=== PATIENT | male | born 1965 | race Hispanic/Latino ===

== ENCOUNTER 2017-12-08 11:49 | Emergency (ER) | payer MEDICAID, OTHER ==
[2017-12-08 11:56] VITALS: BMI 29.8
[2017-12-08 11:59] VITALS: RESP 18; O2SAT 96
--- NOTE | 2017-12-08 12:40 | C.PDOC ---
History Of Present Illness 52 y/o male with history of DM presents to ED with c/o bilateral foot pain 8/10 Left greater than right. Patient states he recently finished antibiotics recently but when Podiatry consulted patient he denies taking any antibiotics. Patient states pain is worse when walking and is non radiating, denies fever, chills, numbness, new injury or any other complaints at this time. Chief Complaint (Nursing): Abnormal Skin Integrity History Per: Patient History/Exam Limitations: no limitations Onset/Duration Of Symptoms: Days Current Symptoms Are (Timing): Still Present Past Medical History Reviewed: Historical Data, Nursing Documentation, Vital Signs Vital Signs: Last Vital Signs Temp 97.9 F 12/08/17 11:55 Pulse 80 12/08/17 11:55 Resp 18 12/08/17 11:55 BP 154/90 H 12/08/17 11:55 Pulse Ox 96 12/08/17 15:25 - Medical History PMH: Diabetes, HTN Surgical History: No Surg Hx Family History: States: No Known Family Hx - Social History Hx Alcohol Use: Yes Hx Substance Use: No - Immunization History Hx Tetanus Toxoid Vaccination: Yes Hx Influenza Vaccination: Yes Hx Pneumococcal Vaccination: Yes Review Of Systems Constitutional: Negative for: Fever, Chills Gastrointestinal: Negative for: Nausea, Vomiting Musculoskeletal: Positive for: Foot Pain Skin: Negative for: Rash Neurological: Negative for: Numbness Physical Exam - Physical Exam Appears: Non-toxic, No Acute Distress, Other (Ill kept) Skin: Warm, Dry, No Rash Head: Atraumatic, Normacephalic Oral Mucosa: Moist Neck: Normal ROM, Supple Cardiovascular: Rhythm Regular Respiratory: Normal Breath Sounds, No Rales, No Rhonchi, No Wheezing Gastrointestinal/Abdominal: Soft, No Tenderness, No Guarding, No Rebound Extremity: Capillary Refill (<2 seconds), No Swelling, Other (left 2nd toe missing. No ulcer noted. Erythema to anterior surface of left foot. Feet unkept , malodorous) Neurological/Psych: Oriented x3, Normal Speech, Normal Cognition ED Course And Treatment - Laboratory Results Result Diagrams: 12/08/17 13:45 12/08/17 13:45 O2 Sat by Pulse Oximetry: 96 (RA) Pulse Ox Interpretation: Normal Medical Decision Making Medical Decision Making: Plan: Xray Progress: Podiatry Resident contacted and consulted patient at bedside Patient d/c with antibiotics and instructed to f.u with podiatry Disposition Counseled Patient/Family Regarding: Diagnosis, Need For Followup, Rx Given - Disposition Referrals: at [facility] [Outside] Disposition: HOME/ ROUTINE Disposition Time: 15:22 Condition: STABLE Additional Instructions: Follow up in Podiatry clinic. Prescriptions: Cephalexin [Keflex] 500 mg PO TID #40 capsule Ibuprofen [Motrin] 600 mg PO TID #15 tab Instructions: Foot Care for Diabetics Forms: [facility] (Eritrean), General Discharge Instructions - POA Present On Arrival: None - Clinical Impression Clinical Impression: Cellulitis, Skin ulcer - Scribe Statement The provider has reviewed the documentation as recorded by the Jaylanibrosalina Pike All medical record entries made by the Nicolasa were at my direction and personally dictated by me. I have reviewed the chart and agree that the record accurately reflects my personal performance of the history, physical exam, medical decision making, and the department course for this patient. I have also personally directed, reviewed, and agree with the discharge instructions and disposition.
[2017-12-08 13:53] LABS: BASO % 0.9 % (0.0-2.0); EOS # 0.1 K/uL (0.0-0.7); EOS % 2.8 % (0.0-4.0); LYMPH % 20.9 % (20.0-40.0); MEAN CORPUSCULAR HEMOGLOBIN 26.6 pg (27.0-31.0); MEAN CORPUSCULAR HGB CONC 34.6 g/dL (33.0-37.0); MEAN PLATELET VOLUME 8.7 fL (7.2-11.7); MONO # 0.4 K/uL (0.0-0.8); MONO % 7.7 % (0.0-10.0); NEUT # 3.2 K/uL (1.8-7.0); NEUT % 67.7 % (50.0-75.0); NRBC % 0.1 % (0.0-2.0); RBC 3.23 Mil/uL (4.40-5.90); RED CELL DISTRIBUTION WIDTH 14.9 % (11.5-14.5); WHITE BLOOD COUNT 4.7 K/uL (4.8-10.8)
[2017-12-08 13:56] LABS: HEMOGLOBIN 8.6 g/dL (12.0-18.0); MEAN CELL VOLUME 76.8 fL (80.0-94.0)
--- NOTE | 2017-12-08 14:13 | CP.PCM.CON ---
History of Present Illness - History of Present Illness History of Present Illness: Podiatry Consult note for Dr. Otero 52 year old male with PMHx including DM, HTN, HLD was seen at bedside regarding bilateral lower extremity pain. Patient states that he was treated for this last week in the hospital and was discharged with oral abx which he has not taken. During the exam, he is seen very sleep and falls asleep easily. Denies smoking and elicit drug use but admits to occasional EtOH. Admits that he is diabetic and has neuropathy. He currently denies any n/v/f/c/sob/cp/calf pain. Past Patient History - Past Social History Smoking Status: Never Smoked - CARDIAC Hx Hypertension: Yes - ENDOCRINE/METABOLIC Hx Endocrine Disorders: Yes Hx Diabetes Mellitus Type 2: Yes - PSYCHIATRIC Hx Substance Use: No - SURGICAL HISTORY Hx Surgeries: Yes Hx Amputation: Yes (left 2nd toe) - ANESTHESIA Hx Anesthesia: Yes Hx Anesthesia Reactions: No Meds Allergies/Adverse Reactions: Allergies Allergy/AdvReac Type Severity Reaction Status Date / Time No Known Allergies Allergy Verified 12/08/17 11:54 Physical Exam - Constitutional Appears: Non-toxic, No Acute Distress - Extremities Exam Additional comments: lower extremity focused exam: vasc: DP and PT pulses non-palpable due to +2 pitting edema. CFT < 3 seconds to all digits. +2 pitting edema noted to bilateral lower extremities. Skin temperature is warm to warm from proximal to distal b/l. derm:open lesion noted to the plantar aspect of the left foot measuring approximately 2 cm by 2 cm by 0.2 cm with a hyperkeratotic border, base is granular,erythema noted to dorsum of left foot, malodor noted to feet b/l due to poor hygiene neuro:gross sensation diminished b.l ortho:tenderness to palpation of feet b/l, no pain on compression of calf b/l, left 2nd digit amputation noted - Psychiatric Exam Psychiatric exam: Normal Affect, Normal Mood Results - Vital Signs Recent Vital Signs: Last Vital Signs Temp 97.9 F 12/08/17 11:55 Pulse 80 12/08/17 11:55 Resp 18 12/08/17 11:55 BP 154/90 H 12/08/17 11:55 Pulse Ox 96 12/08/17 12:44 - Labs Result Diagrams: 12/08/17 13:45 12/08/17 13:45 Labs: Laboratory Results - last 24 hr 12/08/17 12/08/17 12:01 13:45 WBC 4.7 L RBC 3.23 L Hgb 8.6 L D Hct 24.8 L MCV 76.8 L D MCH 26.6 L MCHC 34.6 RDW 14.9 H Plt Count 128 L D MPV 8.7 Neut % (Auto) 67.7 Lymph % (Auto) 20.9 [place] % (Auto) 7.7 Eos % (Auto) 2.8 Baso % (Auto) 0.9 Neut # (Auto) 3.2 Lymph # (Auto) 1.0 [place] # (Auto) 0.4 Eos # (Auto) 0.1 Baso # (Auto) 0.0 POC Glucose (mg/dL) 247 H Assessment & Plan - Assessment and Plan (Free Text) Assessment: 52 year old male with pain in legs b/l Plan: patient examined and evaluated discussed in detail with attending, Dr. Otero labs, chart vitals reviewed; afebrile, WBC 4.7 radiographic IMPRESSION: No acute fracture or evidence of periosteal reaction. Prior left 2nd digit transmetatarsal amputation. Erosive changes involving right 1st and 2nd metatarsophalangeal joints. Left worst than right dorsal forefoot soft tissue swelling. Abx per ED attending Patient to follow up in podiatry clinic
[2017-12-08 14:18] LABS: BLOOD UREA NITROGEN 38 mg/dL (9-20); CALCIUM 8.8 mg/dl (8.6-10.4); GFR AFRICAN-AMERICAN 40; GFR NON-AFRICAN AMERICAN 33
--- NOTE | 2017-12-08 14:42 | RAD ---
PROCEDURE: Bilateral Feet Radiographs. HISTORY: diabetic foot COMPARISON: CT scan of both feet dated 11/09/2015. FINDINGS: BONES: Right Foot: Fusion of the 5th digit and cuboid. No acute fracture or evidence of periosteal reaction Left Foot: Prior distal 2nd digit transmetatarsal amputation. Fusion of the 5th digit and cuboid. No acute fracture or evidence of periosteal reaction JOINTS: Right Foot: Erosive changes involving the 1st and 2nd metatarsophalangeal joints. Left Foot: Hallux valgus deformity. Degenerative changes. SOFT TISSUES: Right Foot: Dorsal forefoot soft tissue swelling. Left Foot: Dorsal forefoot soft tissue swelling. OTHER FINDINGS: None. IMPRESSION: No acute fracture or evidence of periosteal reaction. Prior left 2nd digit transmetatarsal amputation. Erosive changes involving right 1st and 2nd metatarsophalangeal joints. Left worst than right dorsal forefoot soft tissue swelling.
[2017-12-08 16:03] VITALS: BP 150/74; PULSE 75; TEMP 98
== END 2017-12-08 16:06 | disposition home or self-care (01) ==
LOC: C.ER 11:49
DX: L03.116 Cellulitis of left lower limb (principal); L97.829 Non-pressure chronic ulcer of other part of left lower leg with unspecified severity; I10 Essential (primary) hypertension; E11.9 Type 2 diabetes mellitus without complications; E78.5 Hyperlipidemia, unspecified; Z89.422 Acquired absence of other left toe(s)

== ENCOUNTER 2018-01-25 04:53 | Inpatient (IN) | payer MEDICAID, OTHER ==
[2018-01-25 04:53] VITALS: BMI 29.8
[2018-01-25 05:49] LABS: BASO # 0.1 K/uL (0.0-0.2); BASO % 0.8 % (0.0-2.0); EOS # 0.1 K/uL (0.0-0.7); HEMOGLOBIN 8.5 g/dL (12.0-18.0); LYMPH # 1.1 K/uL (1.0-4.3); LYMPH % 14.3 % (20.0-40.0); MEAN CELL VOLUME 75.9 fL (80.0-94.0); MEAN CORPUSCULAR HEMOGLOBIN 25.9 pg (27.0-31.0); MEAN CORPUSCULAR HGB CONC 34.1 g/dL (33.0-37.0); MEAN PLATELET VOLUME 8.2 fL (7.2-11.7); MONO # 0.7 K/uL (0.0-0.8); MONO % 9.8 % (0.0-10.0); NEUT # 5.4 K/uL (1.8-7.0); NEUT % 73.1 % (50.0-75.0); RBC 3.3 Mil/uL (4.40-5.90); RED CELL DISTRIBUTION WIDTH 13.7 % (11.5-14.5); WHITE BLOOD COUNT 7.3 K/uL (4.8-10.8)
--- NOTE | 2018-01-25 06:02 | C.PDOC ---
History Of Present Illness 52 year old male present to the ER with a complaint of left foot swelling. Patient states "I've got an infection, I need IV antibiotics", he notes he has had a wound to that foot for "years". Patient was evaluated at [facility] last month and reports taking antibiotics as instructed. He was recently admitted to a hospital in [facility] and was seen at a hospital in [facility]. Patient states he has not taken his diabetes medicine or antibiotics unless given to him in the hospital. Denies fever or trauma. Time Seen by Provider: 01/25/18 05:12 Chief Complaint (Nursing): Lower Extremity Problem/Injury History Per: Patient History/Exam Limitations: no limitations Onset/Duration Of Symptoms: Days Current Symptoms Are (Timing): Still Present Recent travel outside of the [place]: No Past Medical History Reviewed: Historical Data, Nursing Documentation, Vital Signs Vital Signs: Last Vital Signs Temp 98.3 F 01/25/18 05:02 Pulse 81 01/25/18 05:02 Resp 16 01/25/18 05:02 BP 158/86 H 01/25/18 05:02 Pulse Ox 100 01/25/18 06:13 - Medical History PMH: Diabetes, HTN Family History: States: Unknown Family Hx - Social History Hx Alcohol Use: Yes Hx Substance Use: No - Immunization History Hx Tetanus Toxoid Vaccination: Yes Hx Influenza Vaccination: Yes Hx Pneumococcal Vaccination: Yes Review Of Systems Constitutional: Negative for: Fever, Chills Cardiovascular: Negative for: Chest Pain, Palpitations Respiratory: Negative for: Cough, Shortness of Breath Musculoskeletal: Positive for: Other (Left foot swelling) Physical Exam - Physical Exam Appears: Non-toxic, Unkempt Skin: Warm, Dry Head: Atraumatic, Normacephalic Eye(s): bilateral: Normal Inspection, EOMI Nose: Normal Oral Mucosa: Moist Chest: Symmetrical, No Tenderness Cardiovascular: Rhythm Regular Respiratory: Normal Breath Sounds, No Rales, No Rhonchi, No Wheezing Extremity: Normal ROM (x4), Pedal Edema, Capillary Refill (<2 seconds), Other ( Left foot warm and erythematous, two 2x2cm open wounds to plantar aspect of left foot, no purulent drainage.) Pulses: Left Dorsalis Pedis: Normal, Right Dorsalis Pedis: Normal Neurological/Psych: Oriented x3, Normal Speech, Normal Motor, No Normal Sensation (soila decreased sensation) Gait: Steady ED Course And Treatment - Laboratory Results Result Diagrams: 01/25/18 05:46 01/25/18 05:46 O2 Sat by Pulse Oximetry: 100 (Room air) Pulse Ox Interpretation: Normal Progress Note: Case discussed with Dr Justin, agreed upon plan and treatment. Case endorsed to QUALITY SYSTEM MANAGER Alize Rojas pending podiatry. Disposition - Disposition Disposition Time: 06:56 Condition: STABLE Forms: [email or web address] [facility] (Turkmen) - Clinical Impression Clinical Impression: Chronic foot ulcer, Cellulitis - PA / QUALITY SYSTEM MANAGER / Resident Statement MD/DO has reviewed & agrees with the documentation as recorded. - Scribe Statement The provider has reviewed the documentation as recorded by the Scribe Jluis Roth All medical record entries made by the Jaylanibrosalina were at my direction and personally dictated by me. I have reviewed the chart and agree that the record accurately reflects my personal performance of the history, physical exam, medical decision making, and the department course for this patient. I have also personally directed, reviewed, and agree with the discharge instructions and disposition.
[2018-01-25 06:04] LABS: ALB/GLOB RATIO 1.1 (1.0-2.1); ALBUMIN 3.5 g/dL (3.5-5.0); CALCIUM 8.4 mg/dl (8.6-10.4)
[2018-01-25] MEDS ORDERED: ceFAZolin IV 1 gm in Dextrose 1 GM/50 ML BAG IVPB STA (06:35)
[2018-01-25] MEDS ORDERED: Sodium Chloride 0.9% 1,000 ML IV ONE (06:35)
[2018-01-25] MEDS ORDERED: ceFAZolin 1 gm in NS 1 GM/100 ML BAG IVPB ONE (06:46)
[2018-01-25] MEDS ORDERED: Sodium Chloride 0.9% 1,000 ML ONE (06:46)
--- NOTE | 2018-01-25 10:41 | CP.PCM.HP ---
<LizzetteprestonMelissa albertoTimi - Last Filed: 01/25/18 11:50> History of Present Illness - History of Present Illness History of Present Illness: CC: "My leg is swollen and painful." HPI: Patient is a 52 year old male with a past medical history of HTN, HLD, DM, and chronic leg edema/ulcers, who presents to the ED with complaints of a painful swollen left leg for the past two days. He says his legs have been swollen for "a couple of years" and he has been to "many hospitals in the past because of his legs". Yesterday, he took a tablet of doxycycline that he had from a previous infection. The patient reports recently being hospitalized in [facility] for the same complaints; however, he was told he has "dehydrated kidneys" and was given IV fluids. The patient currently complains of tender swollen left leg. He says that when hes on his feet all day, sometimes his sensation decreases. Patient denies chest pain, abdominal pain, dyspnea, nausea , vomiting, fevers, headaches, dysuria, constipation, and diarrhea. Patient is a poor historian and continues to fall asleep during examination. PMHx: HTN, HLD, DM, and chronic leg edema/ulcers SurgHx: Amputation of left 2nd toe 2017; multiple feet surgeries FamHx: patient does not know SocHx: denies tobacco and drug use; admits to etoh use "at social gatherings"; denies daily drinking Allergies: NKDA Medications: "antibiotics when I need them"; patient does not take any medications at this time ("for a couple of months"); formerly took Metformin 500mg PO BID Present on Admission - Present on Admission Any Indicators Present on Admission: Yes History of Uncontrolled Diabetes: Yes Review of Systems - Constitutional Constitutional: absent: Chills, Fever, Headache, Weakness - EENT Ears: absent: Dizziness - Cardiovascular Cardiovascular: Leg Edema. absent: Chest Pain, Dyspnea, Lightheadedness, Palpitations, Rapid Heart Rate - Respiratory Respiratory: absent: Cough, Dyspnea - Gastrointestinal Gastrointestinal: absent: Abdominal Pain, Constipation, Diarrhea, Nausea, Vomiting - Genitourinary Genitourinary: absent: Dysuria - Integumentary Integumentary: Skin Ulcer (chronic ulcers), Swelling (L>R LE) - Neurological Neurological: absent: Dizziness, Headaches Past Patient History - Infectious Disease Hx of Infectious Diseases: None - Past Social History Smoking Status: Never Smoked - CARDIAC Hx Hypertension: Yes - ENDOCRINE/METABOLIC Hx Endocrine Disorders: Yes Hx Diabetes Mellitus Type 2: Yes - PSYCHIATRIC Hx Substance Use: No - SURGICAL HISTORY Hx Surgeries: Yes Hx Amputation: Yes (left 2nd toe) - ANESTHESIA Hx Anesthesia: Yes Hx Anesthesia Reactions: No Meds Allergies/Adverse Reactions: Allergies Allergy/AdvReac Type Severity Reaction Status Date / Time No Known Allergies Allergy Verified 01/25/18 05:17 Physical Exam - Constitutional Appears: No Acute Distress - Head Exam Head Exam: ATRAUMATIC, NORMAL INSPECTION - Eye Exam Eye Exam: EOMI, Normal appearance - ENT Exam ENT Exam: Mucous Membranes Moist - Respiratory Exam Respiratory Exam: Decreased Breath Sounds, NORMAL BREATHING PATTERN. absent: Rales, Rhonchi, Wheezes, Respiratory Distress - Cardiovascular Exam Cardiovascular Exam: REGULAR RHYTHM, +S1, +S2. absent: Bradycardia, Tachycardia - GI/Abdominal Exam GI & Abdominal Exam: Normal Bowel Sounds, Soft. absent: Distended, Firm, Tenderness - Extremities Exam Extremities exam: Positive for: full ROM, pedal edema, tenderness (Left LE), pedal pulses present (R pedal pulse palpated. Left pulse not palpable due to dressings.). Negative for: normal inspection Additional comments: Left LE: pitting edema extending up to the knee; pain with palpation. Dressing applied from foot to mid calf-clean/dry/intact; amputated 2ng digit; sensation intact. - Neurological Exam Neurological exam: Alert, Oriented x3 - Psychiatric Exam Psychiatric exam: Normal Mood - Skin Skin Exam: Dry, Warm Results - Vital Signs Recent Vital Signs: Last Vital Signs Temp 98.5 F 01/25/18 08:23 Pulse 88 01/25/18 08:23 Resp 18 01/25/18 08:23 BP 146/78 01/25/18 08:23 Pulse Ox 100 01/25/18 08:23 - Labs Result Diagrams: 01/25/18 05:46 01/25/18 05:46 Labs: Laboratory Results - last 24 hr 01/25/18 01/25/18 01/25/18 05:16 05:46 05:46 WBC 7.3 D RBC 3.30 L Hgb 8.5 L Hct 25.0 L MCV 75.9 L MCH 25.9 L MCHC 34.1 RDW 13.7 Plt Count 171 MPV 8.2 Neut % (Auto) 73.1 Lymph % (Auto) 14.3 L [place] % (Auto) 9.8 Eos % (Auto) 2.0 Baso % (Auto) 0.8 Neut # (Auto) 5.4 Lymph # (Auto) 1.1 [place] # (Auto) 0.7 Eos # (Auto) 0.1 Baso # (Auto) 0.1 Sodium 135 Potassium 4.1 Chloride 101 Carbon Dioxide 24 Anion Gap 14 BUN 26 H Creatinine 2.5 H Est GFR ( Amer) 33 Est GFR (Non-Af Amer) 27 POC Glucose (mg/dL) 250 H Random Glucose 217 H Calcium 8.4 L Total Bilirubin 0.8 AST 18 ALT 30 Alkaline Phosphatase 59 Total Protein 6.7 Albumin 3.5 Globulin 3.2 Albumin/Globulin Ratio 1.1 Assessment & Plan (1) Left leg swelling Assessment and Plan: Afebrile, no leukocytosis Left foot xray: f/u Dopplers of LLE: f/u In the ED, Cefazolin was given Gave 1 dose of Vanco 1gm IV Started Zosyn 2.25g IV Q8h Continue to monitor Status: Acute (2) Renal dysfunction Assessment and Plan: Recently in a [place] hospital for cellulitis and renal dysfunciton- was given IVF BUN/Cr: 26/2.5 [of note-previous ER visit in November 2017, BUN/Cr was 38/2.1] Continue IV Fluids- 1/2NS@100mls/hr Continue to monitor Status: Acute (3) Diabetes mellitus Assessment and Plan: Accuchecks ISS Hypoglycemic protocol Diabetic diet Status: Acute (4) Prophylactic measure Assessment and Plan: DVT: no SCDs due to swelling; Heparin 5000u SC Q8 GI: not indicated Diabetic diet Status: Acute <Damian Chakraborty H - Last Filed: 01/25/18 16:51> Results - Vital Signs Recent Vital Signs: Last Vital Signs Temp 98 F 01/25/18 16:29 Pulse 76 01/25/18 16:29 Resp 20 01/25/18 16:29 BP 130/71 01/25/18 16:29 Pulse Ox 100 01/25/18 16:29 - Labs Result Diagrams: 01/25/18 05:46 01/25/18 05:46 Labs: Laboratory Results - last 24 hr 01/25/18 01/25/18 01/25/18 05:16 05:46 05:46 WBC 7.3 D RBC 3.30 L Hgb 8.5 L Hct 25.0 L MCV 75.9 L MCH 25.9 L MCHC 34.1 RDW 13.7 Plt Count 171 MPV 8.2 Neut % (Auto) 73.1 Lymph % (Auto) 14.3 L [place] % (Auto) 9.8 Eos % (Auto) 2.0 Baso % (Auto) 0.8 Neut # (Auto) 5.4 Lymph # (Auto) 1.1 [place] # (Auto) 0.7 Eos # (Auto) 0.1 Baso # (Auto) 0.1 Sodium 135 Potassium 4.1 Chloride 101 Carbon Dioxide 24 Anion Gap 14 BUN 26 H Creatinine 2.5 H Est GFR ( Amer) 33 Est GFR (Non-Af Amer) 27 POC Glucose (mg/dL) 250 H Random Glucose 217 H Calcium 8.4 L Total Bilirubin 0.8 AST 18 ALT 30 Alkaline Phosphatase 59 Total Protein 6.7 Albumin 3.5 Globulin 3.2 Albumin/Globulin Ratio 1.1 01/25/18 01/25/18 12:05 16:11 WBC RBC Hgb Hct MCV MCH MCHC RDW Plt Count MPV Neut % (Auto) Lymph % (Auto) [place] % (Auto) Eos % (Auto) Baso % (Auto) Neut # (Auto) Lymph # (Auto) [place] # (Auto) Eos # (Auto) Baso # (Auto) Sodium Potassium Chloride Carbon Dioxide Anion Gap BUN Creatinine Est GFR ( Amer) Est GFR (Non-Af Amer) POC Glucose (mg/dL) 228 H 92 Random Glucose Calcium Total Bilirubin AST ALT Alkaline Phosphatase Total Protein Albumin Globulin Albumin/Globulin Ratio Attending/Attestation - Attestation I have personally seen and examined this patient.: Yes I have fully participated in the care of the patient.: Yes I have reviewed all pertinent clinical information: Yes Notes (Text): 01/25/18 16:50 Medical attending: Patient was seen and examined by me, agrees the above note by the medical pathologist. This is a homeless patient, who for some time now has had a nonhealing left foot ulcer for some time now. Will need to get imaging of the left foot just to make sure he does not have osteomyelitis. Also the emergency room was concerned of the elevated creatinine. He had lab work 1 month ago and at that time the creatinine was slightly lower. It is possible that he is dehydrated so will give him a gentle intravenous fluids just to see what happens to his renal function. It may be that this is chronic but we'll see. I explained to the patient that he might be discharged tomorrow. In the meantime we'll give Zosyn, as well as a one-time dose of vancomycin Thank you very much, Damian Chakraborty
[2018-01-25] MEDS ORDERED: Vancomycin 1 gm/NS 200 ml 1 GM/200 ML BAG IVPB ONE (11:00)
[2018-01-25] MEDS: Sodium Chloride 0.45% 1,000 ML IV SCH ×4 (11:38→21:11)
[2018-01-25] MEDS: (Novolin R) Insulin Human Regular 100 units/ml vial SC SCH ×3 (12:22→21:12)
[2018-01-25] MEDS: Piperacillin/Tazobact 2.25 GM in Sodium Chloride 100 ML IVPB SCH ×2 (13:55→21:09)
--- NOTE | 2018-01-25 16:12 | CP.PCM.CON ---
History of Present Illness - History of Present Illness History of Present Illness: Podiatry consultation note for Dr. Otero 52 year old male patient with a past medical history of HTN, HLD, DM, and chronic leg edema/ulcer was seen at bedside ED this morning after request for podiatry consultation. Patient presents with open ulceration to left leg, states those are chronic. Patient also states that he had edema to left leg for a long time as well; "more than months". He does not remember any trauma to the left foot. Patient denies of pain to left foot site of ulceration on palpation. Patient denies of any N/V/F?C or SOB Past Patient History - Infectious Disease Hx of Infectious Diseases: None - Past Medical History & Family History Past Medical History?: Yes - Past Social History Smoking Status: Never Smoked - CARDIAC Hx Hypertension: Yes - ENDOCRINE/METABOLIC Hx Endocrine Disorders: Yes Hx Diabetes Mellitus Type 2: Yes - MUSCULOSKELETAL/RHEUMATOLOGICAL Hx Falls: No - PSYCHIATRIC Hx Substance Use: No - SURGICAL HISTORY Hx Surgeries: Yes Hx Amputation: Yes (left 2nd toe) - ANESTHESIA Hx Anesthesia: Yes Hx Anesthesia Reactions: No Meds Allergies/Adverse Reactions: Allergies Allergy/AdvReac Type Severity Reaction Status Date / Time No Known Allergies Allergy Verified 01/25/18 05:17 - Medications Medications: Current Medications Heparin Sodium (Porcine) (Heparin) 5,000 units SC Q8 [facility] Last Admin: 01/25/18 13:56 Dose: 5,000 units Piperacillin Sod/Tazobactam (Sod 2.25 gm/ Sodium Chloride) 100 mls @ 200 mls/ hr IVPB Q8H NATALIO PRN Reason: Protocol Last Admin: 01/25/18 13:55 Dose: 200 mls/hr Sodium Chloride (Sodium Chloride 0.45%) 1,000 mls @ 100 mls/hr IV .Q10H NATALIO Last Admin: 01/25/18 12:18 Dose: 100 mls/hr Insulin Human Regular (Novolin R) 0 unit SC ACHS NATALIO PRN Reason: Protocol Last Admin: 01/25/18 12:22 Dose: 3 unit Pneumococcal Polyvalent Vaccine (Pneumovax 23 Vaccine) 0.5 ml IM .ONCE ONE Stop: 01/27/18 10:01 Physical Exam - Constitutional Appears: Well, Non-toxic, No Acute Distress - Extremities Exam Additional comments: Left lower extremity exam DERM: Open ulceration noted to plantar lateral aspect of left foot hallux IPJ measuring 2cm x 2cm x 0.1cm. Mild serous drainage noted. No probe to bone. No pus noted. Preiwound erythema noted <1cmm margin. Open wound noted to plantar aspect of Left foot 4th metatarsal head measuring 1cm x 1cm x 0.4cm with mix of fibrotic and granular base. No drainage noted. No pus noted. No erythema noted. No probe to bone. Hyperkeratotic lesion noted to plantar aspect of left foot 1st mtpj measuring 1.5cm x x1.5cm. No drinage noted. No sign of acute infection noted. VASC: Non-palpable DP and PT noted bilaterally. YOUNG ADULT LIBRARIAN less than 3 seconds noted to all digits (-left 2nd digit secondary to amputation) NEURO: Gross sensation diminished ORTHO: left 2nd digit amputated from previous surgery. No pain on palpation to left foot - Neurological Exam Neurological exam: Alert, Oriented x3 - Psychiatric Exam Psychiatric exam: Normal Affect, Normal Mood Results - Vital Signs Recent Vital Signs: Last Vital Signs Temp 98.5 F 01/25/18 08:23 Pulse 88 01/25/18 08:23 Resp 18 01/25/18 08:23 BP 146/78 01/25/18 08:23 Pulse Ox 100 01/25/18 08:23 - Labs Result Diagrams: 01/25/18 05:46 01/25/18 05:46 Labs: Laboratory Results - last 24 hr 01/25/18 01/25/18 01/25/18 05:16 05:46 05:46 WBC 7.3 D RBC 3.30 L Hgb 8.5 L Hct 25.0 L MCV 75.9 L MCH 25.9 L MCHC 34.1 RDW 13.7 Plt Count 171 MPV 8.2 Neut % (Auto) 73.1 Lymph % (Auto) 14.3 L Teller % (Auto) 9.8 Eos % (Auto) 2.0 Baso % (Auto) 0.8 Neut # (Auto) 5.4 Lymph # (Auto) 1.1 Teller # (Auto) 0.7 Eos # (Auto) 0.1 Baso # (Auto) 0.1 Sodium 135 Potassium 4.1 Chloride 101 Carbon Dioxide 24 Anion Gap 14 BUN 26 H Creatinine 2.5 H Est GFR ( Amer) 33 Est GFR (Non-Af Amer) 27 POC Glucose (mg/dL) 250 H Random Glucose 217 H Calcium 8.4 L Total Bilirubin 0.8 AST 18 ALT 30 Alkaline Phosphatase 59 Total Protein 6.7 Albumin 3.5 Globulin 3.2 Albumin/Globulin Ratio 1.1 01/25/18 12:05 WBC RBC Hgb Hct MCV MCH MCHC RDW Plt Count MPV Neut % (Auto) Lymph % (Auto) Teller % (Auto) Eos % (Auto) Baso % (Auto) Neut # (Auto) Lymph # (Auto) Teller # (Auto) Eos # (Auto) Baso # (Auto) Sodium Potassium Chloride Carbon Dioxide Anion Gap BUN Creatinine Est GFR ( Amer) Est GFR (Non-Af Amer) POC Glucose (mg/dL) 228 H Random Glucose Calcium Total Bilirubin AST ALT Alkaline Phosphatase Total Protein Albumin Globulin Albumin/Globulin Ratio Assessment & Plan - Assessment and Plan (Free Text) Assessment: 52 yo male patient presents with chromic open ulceration to left plantar foot Plan: Patient was seen, evaluated and treated with all questions and concerns addressed labs and vitals reviewed; afebrile, WBC 7.3 discussed in detail with Dr. Otero Left foot dressed with Betadine soaked DSD, Kerlix, SPENCER Keep left leg elevated with pillows Await for Xray left foot Awaiting arterial study Podiatry will continue to follow in-house
[2018-01-25 16:30] VITALS: RESP 20
[2018-01-26] MEDS: Sodium Chloride 0.45% 1,000 ML IV SCH ×2 (03:28→07:45)
[2018-01-26] MEDS: Piperacillin/Tazobact 2.25 GM in Sodium Chloride 100 ML IVPB SCH ×2 (04:30→13:03)
[2018-01-26] MEDS: (Novolin R) Insulin Human Regular 100 units/ml vial SC SCH ×2 (07:44→12:37)
--- NOTE | 2018-01-26 08:39 | RAD ---
PROCEDURE: Right Foot Radiographs. HISTORY: r/o osteo COMPARISON: None. FINDINGS: BONES: No acute fracture. Healed fracture of base of 5th metatarsal. Status post amputation of 2nd digit at the level of the head of the 2nd metatarsal. JOINTS: Normal. SOFT TISSUES: There is cutaneous ulcer seen along the plantar aspect of the 5th digit at the level of the 5th proximal phalanx. OTHER FINDINGS: None. IMPRESSION: Amputation 2nd digit. Healed fracture base of 5th metatarsal. Cutaneous ulcer plantar aspect 5th proximal phalanx. No other significant abnormality identified. No plain radiographic evidence of osteomyelitis.
--- NOTE | 2018-01-26 10:24 | CP.PCM.PN ---
Subjective - Date & Time of Evaluation Date of Evaluation: 01/26/18 Time of Evaluation: 10:17 - Subjective Subjective: Podiatry consultation note for Dr. Otero 52 year old male patient was seen at bedside for chronic leg/ulcer after being admitted from the ED yesterday. Patient presents with open ulceration and edema to left leg, both being chronic problems. Patient denies any acute pain. Patient denies overnight acute events. Patient denies of any N/V/F?C or SOB Objective - Vital Signs/Intake and Output Vital Signs (last 24 hours): Temp Pulse Resp BP Pulse Ox 98.5 F 73 20 151/82 H 96 01/25/18 23:31 01/25/18 23:31 01/25/18 23:31 01/25/18 23:31 01/25/18 23:31 Intake and Output: 01/26/18 01/26/18 06:59 18:59 Intake Total 1100 Balance 1100 - Medications Medications: Current Medications Heparin Sodium (Porcine) (Heparin) 5,000 units SC Q8 [facility] Last Admin: 01/26/18 05:30 Dose: 5,000 units Piperacillin Sod/Tazobactam (Sod 2.25 gm/ Sodium Chloride) 100 mls @ 200 mls/ hr IVPB Q8H NATALIO PRN Reason: Protocol Last Admin: 01/26/18 04:30 Dose: 200 mls/hr Sodium Chloride (Sodium Chloride 0.45%) 1,000 mls @ 100 mls/hr IV .Q10H [facility] Last Admin: 01/26/18 07:45 Dose: Not Given Insulin Human Regular (Novolin R) 0 unit SC ACHS NATALIO PRN Reason: Protocol Last Admin: 01/26/18 07:44 Dose: Not Given Pneumococcal Polyvalent Vaccine (Pneumovax 23 Vaccine) 0.5 ml IM .ONCE ONE Stop: 01/27/18 10:01 - Labs Labs: 01/25/18 05:46 01/25/18 05:46 - Constitutional Appears: Well, Non-toxic, No Acute Distress - Head Exam Head Exam: ATRAUMATIC, NORMOCEPHALIC - Extremities Exam Additional comments: Left lower extremity exam DERM: Open ulceration noted to plantar lateral aspect of left foot hallux IPJ measuring 2cm x 2cm x 0.1cm. Fibrogranular base, Mild serous drainage noted. No probe to bone. No pus noted. Hyperkeratotic skin jenna wound, Preiwound erythema noted <1cmm margin, no malodor Open wound noted to plantar aspect of Left foot 4th metatarsal head measuring 1cm x 1cm x 0.4cm with mix of fibrotic and granular base. No drainage noted. No pus noted. Hyperkeratotic skin noted jenna wound, No erythema noted. No probe to bone, no malodor. Hyperkeratotic lesion noted to plantar aspect of left foot 1st mtpj measuring 1.5cm x x1.5cm. No drainage noted. No sign of acute infection noted. VASC: Non-palpable DP and PT noted bilaterally. COPYMAN less than 3 seconds noted to all digits (-left 2nd digit secondary to amputation) NEURO: Gross sensation diminished ORTHO: left 2nd digit amputated from previous surgery. No pain on palpation to left foot - Neurological Exam Neurological Exam: Alert, Awake, Oriented x3 - Psychiatric Exam Psychiatric exam: Normal Affect - Skin Skin Exam: Normal Color Assessment and Plan - Assessment and Plan (Free Text) Assessment: 52 yo male patient presents with chronic open ulcerations to left plantar foot Plan: Patient was seen, and evaluated with all questions and concerns addressed Plan discussed in detail with the attending, Dr. Otero labs and vitals reviewed; afebrile, WBC 7.3 Hyperkeratotic skin jenna wound debrided using a sterile #10 blade until healthy tissue was noted Patient tolerated without any concerns. Left foot dressed with Betadine soaked DSD, Kerlix, SPENCER Advised to keep left leg elevated to reduce swelling. X-ray left foot: no osseous deformities; no signs of OM. Awaiting arterial study Podiatry will continue to follow in-house
[2018-01-26 10:39] LABS: BASO # 0.1 K/uL (0.0-0.2); BASO % 1.3 % (0.0-2.0); EOS # 0.3 K/uL (0.0-0.7); EOS % 4.7 % (0.0-4.0); HEMOGLOBIN 9.3 g/dL (12.0-18.0); LYMPH # 1.3 K/uL (1.0-4.3); LYMPH % 23.4 % (20.0-40.0); MEAN CORPUSCULAR HGB CONC 34.6 g/dL (33.0-37.0); MEAN PLATELET VOLUME 8.3 fL (7.2-11.7); MONO # 0.4 K/uL (0.0-0.8); MONO % 6.8 % (0.0-10.0); NEUT # 3.5 K/uL (1.8-7.0); NEUT % 63.8 % (50.0-75.0); RBC 3.57 Mil/uL (4.40-5.90); RED CELL DISTRIBUTION WIDTH 13.6 % (11.5-14.5); WHITE BLOOD COUNT 5.5 K/uL (4.8-10.8)
[2018-01-26 10:56] LABS: ALB/GLOB RATIO 0.9 (1.0-2.1); CALCIUM 8.7 mg/dl (8.6-10.4)
--- NOTE | 2018-01-26 11:36 | CP.PCM.DIS ---
<Melissa Toledo - Last Filed: 01/26/18 12:22> Provider - Provider Date of Admission: 01/25/18 08:04 Attending physician: Damian Chakraborty DO Time Spent in preparation of Discharge (in minutes): 45 Diagnosis - Discharge Diagnosis (1) Left leg swelling Status: Acute (2) Renal dysfunction Status: Acute (3) Diabetes mellitus Status: Acute (4) Prophylactic measure Status: Acute Hospital Course - Lab Results Lab Results: Most Recent Lab Values WBC 5.5 K/uL (4.8-10.8) 01/26/18 10:28 RBC 3.57 Mil/uL (4.40-5.90) L 01/26/18 10:28 Hgb 9.3 g/dL (12.0-18.0) L 01/26/18 10:28 Hct 26.8 % (35.0-51.0) L 01/26/18 10:28 MCV 75.0 fL (80.0-94.0) L 01/26/18 10:28 MCH 26.0 pg (27.0-31.0) L 01/26/18 10:28 MCHC 34.6 g/dL (33.0-37.0) 01/26/18 10:28 RDW 13.6 % (11.5-14.5) 01/26/18 10:28 Plt Count 204 K/uL (130-400) 01/26/18 10:28 MPV 8.3 fL (7.2-11.7) 01/26/18 10:28 Neut % (Auto) 63.8 % (50.0-75.0) 01/26/18 10:28 Lymph % (Auto) 23.4 % (20.0-40.0) 01/26/18 10:28 [place] % (Auto) 6.8 % (0.0-10.0) 01/26/18 10:28 Eos % (Auto) 4.7 % (0.0-4.0) H 01/26/18 10:28 Baso % (Auto) 1.3 % (0.0-2.0) 01/26/18 10:28 Neut # (Auto) 3.5 K/uL (1.8-7.0) 01/26/18 10:28 Lymph # (Auto) 1.3 K/uL (1.0-4.3) 01/26/18 10:28 [place] # (Auto) 0.4 K/uL (0.0-0.8) 01/26/18 10:28 Eos # (Auto) 0.3 K/uL (0.0-0.7) 01/26/18 10:28 Baso # (Auto) 0.1 K/uL (0.0-0.2) 01/26/18 10:28 Sodium 141 mmol/L (132-148) 01/26/18 10:28 Potassium 4.2 mmol/L (3.6-5.2) 01/26/18 10:28 Chloride 107 mmol/L (98-107) 01/26/18 10:28 Carbon Dioxide 25 mmol/L (22-30) 01/26/18 10:28 Anion Gap 14 (10-20) 01/26/18 10:28 BUN 19 mg/dL (9-20) 01/26/18 10:28 Creatinine 2.4 mg/dL (0.8-1.5) H 01/26/18 10:28 Est GFR ( Amer) 35 01/26/18 10:28 Est GFR (Non-Af Amer) 29 01/26/18 10:28 POC Glucose (mg/dL) 105 mg/dL (65-110) 01/26/18 07:29 Random Glucose 117 mg/dL (75-110) H 01/26/18 10:28 Calcium 8.7 mg/dl (8.6-10.4) 01/26/18 10:28 Total Bilirubin 0.7 mg/dL (0.2-1.3) 01/26/18 10:28 AST 16 U/L (17-59) L 01/26/18 10:28 ALT 22 U/L (21-72) 01/26/18 10:28 Alkaline Phosphatase 49 U/L (38-126) 01/26/18 10:28 Total Protein 6.3 g/dL (6.3-8.3) 01/26/18 10:28 Albumin 3.0 g/dL (3.5-5.0) L 01/26/18 10:28 Globulin 3.3 gm/dL (2.2-3.9) 01/26/18 10:28 Albumin/Globulin Ratio 0.9 (1.0-2.1) L 01/26/18 10:28 - Hospital Course Hospital Course: CC: "My leg is swollen and painful." HPI: Patient is a 52 year old male with a past medical history of HTN, HLD, DM, and chronic leg edema/ulcers, who presents to the ED with complaints of a painful swollen left leg for the past two days. He says his legs have been swollen for "a couple of years" and he has been to "many hospitals in the past because of his legs". Yesterday, he took a tablet of doxycycline that he had from a previous infection. The patient reports recently being hospitalized in [facility] for the same complaints; however, he was told he has "dehydrated kidneys" and was given IV fluids. The patient currently complains of tender swollen left leg. He says that when hes on his feet all day, sometimes his sensation decreases. Patient denies chest pain, abdominal pain, dyspnea, nausea , vomiting, fevers, headaches, dysuria, constipation, and diarrhea. Patient is a poor historian and continues to fall asleep during examination. PMHx: HTN, HLD, DM, and chronic leg edema/ulcers SurgHx: Amputation of left 2nd toe 2017; multiple feet surgeries FamHx: patient does not know SocHx: denies tobacco and drug use; admits to etoh use "at social gatherings"; denies daily drinking Allergies: NKDA Medications: "antibiotics when I need them"; patient does not take any medications at this time ("for a couple of months"); formerly took Metformin 500mg PO BID Hospital course: Patient was admitted on 01/25/18 for leg edema and elizabeth. In the ED, labs were drawn and patient was found to have an elevated creatinine. Patient was given IV fluids and cefazolin while in the ED. Patient was transferred to medical floors. Foot xray was ordered to rule out osteomyelitis and showed no evidence of osteomyelitis, amputated 2nd digit, and a healed fracture at base of 5th metatarsal; cutaneous ulcer plantar aspect of 5th phalanx. Dopplers were ordered and was negative for DVT. IV fluids were continued and creatinine decreased. Patient's wounds were cleaned and wrapped in krelix and alex wrap. Patient is stable for discharge. Patient instructed to take medication as prescribed and to follow up with PMD and podiatry. This is a brief summary of the hospital course. Please see EMR for more details. Discharge Exam - Additional Findings Additional findings: - Constitutional Appears: No Acute Distress - Head Exam Head Exam: ATRAUMATIC, NORMAL INSPECTION - Eye Exam Eye Exam: EOMI, Normal appearance - ENT Exam ENT Exam: Mucous Membranes Moist - Respiratory Exam Respiratory Exam: Decreased Breath Sounds, NORMAL BREATHING PATTERN. absent: Rales, Rhonchi, Wheezes, Respiratory Distress - Cardiovascular Exam Cardiovascular Exam: REGULAR RHYTHM, +S1, +S2. absent: Bradycardia, Tachycardia - GI/Abdominal Exam GI & Abdominal Exam: Normal Bowel Sounds, Soft. absent: Distended, Firm, Tenderness - Extremities Exam Extremities exam: Positive for: full ROM, pedal edema, tenderness (Left LE), pedal pulses present (R pedal pulse palpated. Left pulse not palpable due to dressings.). Negative for: normal inspection Additional comments: Left LE: pitting edema extending up to the knee; pain with palpation. Dressing applied from foot to mid calf-clean/dry/intact; amputated 2ng digit; sensation intact. - Neurological Exam Neurological exam: Alert, Oriented x3 - Psychiatric Exam Psychiatric exam: Normal Mood - Skin Skin Exam: Dry, Warm Discharge Plan - Discharge Medications Prescriptions: Cephalexin [Keflex] 500 mg PO TID 5 Days #15 capsule - Follow Up Plan Condition: STABLE Disposition: HOME/ ROUTINE Instructions: Diabetes Exchange Diet, Cellulitis (DC) Additional Instructions: Patient is stable for discharge to home. Patient must continue the following medication: Keflex 500mg PO TID for 5 days. Patient should avoid nsaids. Patient should follow up with PMD and with podiatry within 1-2 weeks of discharge. Patient should keep affected lower extremity elevated, clean, and dry. <Damian Chakraborty - Last Filed: 01/26/18 14:13> Provider - Provider Date of Admission: 01/25/18 08:04 Attending physician: Damian Chakraborty DO Hospital Course - Lab Results Lab Results: Most Recent Lab Values WBC 5.5 K/uL (4.8-10.8) 01/26/18 10:28 RBC 3.57 Mil/uL (4.40-5.90) L 01/26/18 10:28 Hgb 9.3 g/dL (12.0-18.0) L 01/26/18 10: Hct 26.8 % (35.0-51.0) L 01/26/18 10: MCV 75.0 fL (80.0-94.0) L 01/26/18 10: MCH 26.0 pg (27.0-31.0) L 01/26/18 10: MCHC 34.6 g/dL (33.0-37.0) 01/26/18 10:28 RDW 13.6 % (11.5-14.5) 01/26/18 10:28 Plt Count 204 K/uL (130-400) 01/26/18 10: MPV 8.3 fL (7.2-11.7) 01/26/18 10: Neut % (Auto) 63.8 % (50.0-75.0) 01/26/18 10: Lymph % (Auto) 23.4 % (20.0-40.0) 01/26/18 10: [place] % (Auto) 6.8 % (0.0-10.0) 01/26/18 10:28 Eos % (Auto) 4.7 % (0.0-4.0) H 01/26/18 10: Baso % (Auto) 1.3 % (0.0-2.0) 01/26/18 10: Neut # (Auto) 3.5 K/uL (1.8-7.0) 01/26/18 10: Lymph # (Auto) 1.3 K/uL (1.0-4.3) 01/26/18 10: [place] # (Auto) 0.4 K/uL (0.0-0.8) 01/26/18 10: Eos # (Auto) 0.3 K/uL (0.0-0.7) 01/26/18 10: Baso # (Auto) 0.1 K/uL (0.0-0.2) 01/26/18 10:28 Sodium 141 mmol/L (132-148) 01/26/18 10:28 Potassium 4.2 mmol/L (3.6-5.2) 01/26/18 10:28 Chloride 107 mmol/L (98-107) 01/26/18 10:28 Carbon Dioxide 25 mmol/L (22-30) 01/26/18 10:28 Anion Gap 14 (10-20) 01/26/18 10:28 BUN 19 mg/dL (9-20) 01/26/18 10:28 Creatinine 2.4 mg/dL (0.8-1.5) H 01/26/18 10:28 Est GFR ( Amer) 35 01/26/18 10:28 Est GFR (Non-Af Amer) 29 01/26/18 10:28 POC Glucose (mg/dL) 105 mg/dL (65-110) 01/26/18 07:29 Random Glucose 117 mg/dL (75-110) H 01/26/18 10:28 Calcium 8.7 mg/dl (8.6-10.4) 01/26/18 10:28 Total Bilirubin 0.7 mg/dL (0.2-1.3) 01/26/18 10:28 AST 16 U/L (17-59) L 01/26/18 10:28 ALT 22 U/L (21-72) 01/26/18 10:28 Alkaline Phosphatase 49 U/L (38-126) 01/26/18 10:28 Total Protein 6.3 g/dL (6.3-8.3) 01/26/18 10:28 Albumin 3.0 g/dL (3.5-5.0) L 01/26/18 10:28 Globulin 3.3 gm/dL (2.2-3.9) 01/26/18 10:28 Albumin/Globulin Ratio 0.9 (1.0-2.1) L 01/26/18 10:28 Attending/Attestation - Attestation I have personally seen and examined this patient.: Yes I have fully participated in the care of the patient.: Yes I have reviewed all pertinent clinical information, including history, physical exam and plan: Yes Notes (Text): 01/26/18 14:13 Medical attending: Patient was seen and examined by me, agrees the above note by the medical apparatus model maker. The patient underwent an x-ray of the left lower extremity. This x-ray was negative for osteomyelitis. The patient had several runs of IV antibiotics, he'll need to continue with the oral antibiotics as well We also gave the patient a been of supplies that included 4 x 4's, Kerlix wraps , as also Alex wraps. We explained to the patient that he needs to follow-up at [facility] for further care. Review the lab work showed that he did not have any substantial change to his creatinine, this appears to be the baseline. Thank you very much, Damian Chakraborty
[2018-01-26] MEDS ORDERED: Pneumococcal 23-Valent Vaccine IM ONE (12:15)
--- NOTE | 2018-01-26 14:49 | VASCLAB ---
PROCEDURE: Left Lower Extremity Venous Duplex Exam. HISTORY: Swelling, r/o dvt PRIORS: None. TECHNIQUE: Left common femoral, femoral, popliteal and posterior tibial, peroneal and great saphenous veins were evaluated. Flow was assessed with color Doppler, compressibility, assessment of phasic flow and augmentation response. Report prepared by JESENIA Malagon FINDINGS: LEFT: 1. Common Femoral Vein: 1.1. Compressibility - Fully compressible: Thrombus - None : Flow - Phasic: Augmentation -Normal: Reflux - None. 2. Femoral Vein: 2.1. Compressibility - Fully compressible: Thrombus - None: Flow - Phasic: Augmentation -Normal: Reflux - None. 3. Popliteal Vein: 3.1. Compressibility - Fully compressible: Thrombus - None: Flow - Phasic: Augmentation -Normal: Reflux - None. 4. Posterior Tibial Vein: 4.1. Compressibility - Fully compressible: Thrombus - None: Flow - Phasic: Augmentation -Normal: Reflux - None. 5. Peroneal Vein: 5.1. Compressibility - Fully compressible: Thrombus - None: Flow - Phasic: Augmentation -Normal: Reflux - None. 6. Great Saphenous Vein: 6.1. Compressibility - Fully compressible: Thrombus - None: Flow - Phasic: Augmentation - Normal: Reflux - None. OTHER FINDINGS: Wall thickening noted of the left popliteal vein. IMPRESSION: No evidence of deep or superficial vein thrombosis of the left lower extremity with excellent venous flow. Normal valve function noted of the left side. Normal venous flow noted in the right common femoral vein.
[2018-01-26 17:06] VITALS: BP 128/75; PULSE 64; TEMP 98.1; O2SAT 100
[2018-01-27] MEDS ORDERED: Collagenase 250 Units/gm Ointment(30 gm) TOP SCH (10:00)
== END 2018-01-26 18:15 | disposition home or self-care (01) | DRG 294 ==
LOC: C.ER 04:53 → C.3T 08:04 → UNDODISIN 01-26 16:30
PROVIDERS: ADMIT Hospitalist; ATTEND Hospitalist
DX: E11.621 Type 2 diabetes mellitus with foot ulcer (principal); E86.0 Dehydration; L97.929 Non-pressure chronic ulcer of unspecified part of left lower leg with unspecified severity; L03.116 Cellulitis of left lower limb; E78.5 Hyperlipidemia, unspecified; I10 Essential (primary) hypertension; N28.9 Disorder of kidney and ureter, unspecified; Z89.422 Acquired absence of other left toe(s)

== ENCOUNTER 2018-04-26 07:40 | Emergency (ER) | payer SELFPAY ==
[2018-04-26 07:41] VITALS: BMI 29.8
[2018-04-26 08:11] VITALS: RESP 20; TEMP 98.6
--- NOTE | 2018-04-26 08:23 | C.PDOC ---
History Of Present Illness 52-year-old male, presents to the emergency department with complaints of pain to B/L feet. Patient has wounds to both feet and states his bandages need to be changed. He has a Hx of Diabetes. he denies any fever, numbness/weakness. Time Seen by Provider: 04/26/18 07:47 Chief Complaint (Nursing): Lower Extremity Problem/Injury History Per: Patient History/Exam Limitations: no limitations Current Symptoms Are (Timing): Gone Severity: Mild Additional History Per: Patient Past Medical History Reviewed: Historical Data, Nursing Documentation, Vital Signs Vital Signs: Last Vital Signs Temp 98.6 F 04/26/18 08:05 Pulse 79 04/26/18 10:52 Resp 20 04/26/18 10:52 BP 185/112 H 04/26/18 10:52 Pulse Ox 96 04/26/18 16:25 - Medical History PMH: Diabetes, HTN Family History: States: No Known Family Hx - Social History Hx Alcohol Use: No Hx Substance Use: No - Immunization History Hx Tetanus Toxoid Vaccination: Yes Hx Influenza Vaccination: Yes Hx Pneumococcal Vaccination: No Review Of Systems Constitutional: Negative for: Fever, Chills Musculoskeletal: Positive for: Foot Pain Skin: Positive for: Other (ulcers both feet) Neurological: Negative for: Weakness, Numbness Physical Exam - Physical Exam Appears: Non-toxic, No Acute Distress, Unkempt (disheveled, malodorous) Skin: Warm, Dry, No Rash Head: Atraumatic, Normacephalic Eye(s): bilateral: Normal Inspection Nose: Normal Oral Mucosa: Moist Lips: Normal Appearing Neck: Normal ROM Chest: Symmetrical Cardiovascular: Rhythm Regular, No Murmur Respiratory: Normal Breath Sounds, No Accessory Muscle Use Extremity: Other (B/L feet in bandages. (+)chronic ulcer wounds with discharge to plantar aspect. No gangrene) Pulses: Left Dorsalis Pedis: Normal, Right Dorsalis Pedis: Normal Neurological/Psych: Oriented x3, Normal Speech ED Course And Treatment - Laboratory Results Result Diagrams: 04/26/18 09:04/26/18 09:09 Lab Interpretation: No Acute Changes O2 Sat by Pulse Oximetry: 96 Pulse Ox Interpretation: Normal (RA) Progress Note: Treated with ancef 1 gm IV. Case discussed and patient evaluated by podiatry resident. who debdrided both feet ulcers and applied dressing. Treated with hCTZ 25 mg PO. Patient advised to follow up with clinic for evaluation of HTN. Patient discharged to follow up at [facility] for further evaluation Reassessment Condition: Improved Medical Decision Making Medical Decision Making: Pt evaluated by podiatry resident wound care Patient reports he has not been taking his B/P meds and unsure what medications he was on advised to follow up at clinic Disposition Counseled Patient/Family Regarding: Studies Performed, Diagnosis, Need For Followup - Disposition Referrals: [facility] [Outside] [facility] [Outside] Podiatry Clinic [Outside] Disposition: HOME/ ROUTINE Disposition Time: 12:00 Condition: STABLE Additional Instructions: Follow up with the clinic for further evaluation Return to ED if any increase symptoms Prescriptions: Cephalexin [cephalexin] 500 mg PO Q6 #28 cap Hydrochlorothiazide [Microzide] 12.5 mg PO DAILY #15 cap Instructions: Diabetic Foot Ulcer (DC), Foot Care for Diabetics Forms: [facility] (Chinese) - POA Present On Arrival: None - Clinical Impression Clinical Impression: Foot pain, bilateral, Chronic foot ulcer, Diabetes mellitus - Scribe Statement The provider has reviewed the documentation as recorded by the Scribe (Lizabeth De Leon) All medical record entries made by the Scribe were at my direction and personally dictated by me. I have reviewed the chart and agree that the record accurately reflects my personal performance of the history, physical exam, medical decision making, and the department course for this patient. I have also personally directed, reviewed, and agree with the discharge instructions and disposition.
[2018-04-26] MEDS ORDERED: ceFAZolin IV 1 gm in Dextrose 1 GM/50 ML BAG IVPB ONE ×2 (08:27→09:12)
[2018-04-26 09:19] LABS: URINE BACTERIA RARE (<OCC); URINE BILIRUBIN NEGATIVE (NEGATIVE); URINE BLOOD 2+ (NEGATIVE); URINE CLARITY Clear (Clear); URINE COLOR Straw (YELLOW); URINE GLUCOSE (UA) 1+ mg/dL (Normal); URINE LEUKOCYTE ESTERASE NEG Leu/uL (Negative); URINE PROTEIN 2+ mg/dL (NEGATIVE); URINE UROBILINOGEN NORMAL mg/dL (0.2-1.0)
[2018-04-26 09:22] LABS: BASO # 0.1 K/uL (0.0-0.2); BASO % 0.8 % (0.0-2.0); EOS # 0.2 K/uL (0.0-0.7); EOS % 2.3 % (0.0-4.0); HEMOGLOBIN 8.7 g/dL (12.0-18.0); LYMPH # 1.5 K/uL (1.0-4.3); LYMPH % 21.5 % (20.0-40.0); MEAN CELL VOLUME 75.5 fL (80.0-94.0); MEAN CORPUSCULAR HEMOGLOBIN 25.7 pg (27.0-31.0); MEAN PLATELET VOLUME 8.4 fL (7.2-11.7); MONO # 0.6 K/uL (0.0-0.8); MONO % 8.8 % (0.0-10.0); NEUT # 4.8 K/uL (1.8-7.0); NEUT % 66.6 % (50.0-75.0); NRBC % 0.1 % (0.0-2.0); RBC 3.39 Mil/uL (4.40-5.90); RED CELL DISTRIBUTION WIDTH 15.4 % (11.5-14.5); WHITE BLOOD COUNT 7.2 K/uL (4.8-10.8)
[2018-04-26 09:26] LABS: ALB/GLOB RATIO 1.2 (1.0-2.1); ALBUMIN 3.5 g/dL (3.5-5.0); CALCIUM 8.8 mg/dl (8.6-10.4)
[2018-04-26] MEDS ORDERED: Bacitracin 500 Units/gm Oint Foilpak UD TOP ONE (09:56)
[2018-04-26] MEDS ORDERED: Bacitracin 500 Units/gm Oint Foilpak UD ONE (09:57)
[2018-04-26 10:56] VITALS: BP 185/112; PULSE 79
[2018-04-26 10:58] VITALS: O2SAT 96
--- NOTE | 2018-04-26 12:41 | CP.PCM.CON ---
History of Present Illness - History of Present Illness History of Present Illness: Podiatry consult note for Dr. Otero: 52 yo seen and evaluated in the ED for chronic left foot wound. Patient is AAOx3 and NAD. States he has had the wound for a very long time but cannot put a specific timeline together. States he is in no pain today and that he needs the wound debrided. States he was last seen at a hospital in [place] where he was admitted and he left against medical advice. States he had his left foot toe am putation performed in [place]. States he is going back home to [place] to be treated for his foot. He denies N/V/F/C/SOB/CP and has no other pedal complaints at this time. PMHx cellulitis, renal dysfunction, DM PSHx left second digit amputation All NKDA Past Patient History - Infectious Disease Hx of Infectious Diseases: None - Past Medical History & Family History Past Medical History?: Yes - Past Social History Smoking Status: Never Smoked - CARDIAC Hx Hypertension: Yes - ENDOCRINE/METABOLIC Hx Endocrine Disorders: Yes Hx Diabetes Mellitus Type 2: Yes - MUSCULOSKELETAL/RHEUMATOLOGICAL Hx Falls: No - PSYCHIATRIC Hx Substance Use: No - SURGICAL HISTORY Hx Surgeries: Yes Hx Amputation: Yes (left 2nd toe) Other/Comment: R foot - hammer toe - ANESTHESIA Hx Anesthesia: Yes Hx Anesthesia Reactions: No Meds Home Medications: Home Medication List Medication Instructions Recorded Confirmed Type Cephalexin [cephalexin] 500 mg PO Q6 #28 cap 04/26/18 Rx Hydrochlorothiazide [Microzide] 12.5 mg PO DAILY #15 cap 04/26/18 Rx Allergies/Adverse Reactions: Allergies Allergy/AdvReac Type Severity Reaction Status Date / Time No Known Allergies Allergy Verified 04/26/18 08:12 Physical Exam - Constitutional Appears: Well, Non-toxic, No Acute Distress - Head Exam Head Exam: ATRAUMATIC, NORMOCEPHALIC - Extremities Exam Additional comments: Vasc: DP and PT pulses palpable 2/4 b/l; temp gradient warm to cool from proximal to distal b/l; cap refill <3 seconds to all remaining digits; nonpitting edema present L>R Derm: left foot submet 5 chronic wound present measures 1cm x 1cm x 0.2cm and does not PTB; no drainage present, no pus or streaking present; mild periwound erythema; margins are hyperkeratotic, base is 100% granular; no clinical signs of infection are present; no evidence of cellulitis present; there is a hyperkeratotic pinch callus on the left medial hallux and a hyperkeratotic lesion submet1 on the right foot - no clinical signs of infection present, les ions are stable Ortho: left second digit previous amputation scar present; mild pain on palpation of the chronic left foot wound; MMT 5/5 b/l; equinus deformity present at b/l ankles Neuro: diminshed gross and protective sensation - Neurological Exam Neurological exam: Alert, Oriented x3 - Psychiatric Exam Psychiatric exam: Normal Affect, Normal Mood Results - Vital Signs Recent Vital Signs: Last Vital Signs Temp 98.6 F 04/26/18 08:05 Pulse 79 04/26/18 10:52 Resp 20 04/26/18 10:52 BP 185/112 H 04/26/18 10:52 Pulse Ox 96 04/26/18 11:01 - Labs Result Diagrams: 04/26/18 09:09 04/26/18 09:09 Labs: Laboratory Results - last 24 hr 04/26/18 04/26/18 04/26/18 09:09 09:09 09:09 WBC 7.2 RBC 3.39 L Hgb 8.7 L Hct 25.6 L MCV 75.5 L MCH 25.7 L MCHC 34.0 RDW 15.4 H Plt Count 145 MPV 8.4 Neut % (Auto) 66.6 Lymph % (Auto) 21.5 [place] % (Auto) 8.8 Eos % (Auto) 2.3 Baso % (Auto) 0.8 Neut # (Auto) 4.8 Lymph # (Auto) 1.5 [place] # (Auto) 0.6 Eos # (Auto) 0.2 Baso # (Auto) 0.1 Sodium 137 Potassium 4.3 Chloride 101 Carbon Dioxide 25 Anion Gap 16 BUN 35 H Creatinine 2.8 H Est GFR ( Amer) 29 Est GFR (Non-Af Amer) 24 Random Glucose 150 H Calcium 8.8 Total Bilirubin 0.7 AST 17 ALT 30 Alkaline Phosphatase 59 Total Protein 6.6 Albumin 3.5 Globulin 3.0 Albumin/Globulin Ratio 1.2 Urine Color Straw Urine Clarity Clear Urine pH 6.0 Ur Specific [place] 1.006 Urine Protein 2+ H Urine Glucose (UA) 1+ H Urine Ketones Negative Urine Blood 2+ H Urine Nitrate Negative Urine Bilirubin Negative Urine Urobilinogen Normal Ur Leukocyte Esterase Neg Urine WBC (Auto) 1 Urine RBC (Auto) 3 Urine Bacteria Rare Assessment & Plan - Assessment and Plan (Free Text) Assessment: 52 yo seen and evaluated in the ED for a chronic left foot diabetic wound Plan: PAtient seen and evaluated Discussed in detail with Dr. Otero Charts and labs reviewed: afebrile and absent leukocytosis X-rays reviewed - no evidence of bony destruction, no evidence of acute osteomyelitis; soft tissue swelling present Wound hyperkeratotic margins and base debrided sharply with a 15 blade to healthy bleeding - patient tolerated procedure well Wound dressed with bacitracin, ABD and DSD Instructed patient he can follow up in the wound care clinic at [place] if he does not return home to [place] for care Patient stable from podiatry standpoint Thank you for the consult - Date & Time Date: 04/26/18 Time: 12:50
--- NOTE | 2018-04-26 13:27 | RAD ---
Date of service: 04/26/2018 PROCEDURE: Bilateral Feet Radiographs. HISTORY: cellulitis COMPARISON: Bilateral foot radiographs performed 12/08/17 FINDINGS: BONES: Right Foot: Fusion of the 5th digit and cuboid. No acute displaced fracture or dislocation identified. Sclerosis of the proximal 4th and 5th metatarsals. Left Foot: Distal 2nd digit transmetatarsal amputation. Fusion of the 5th digit and cuboid. No acute displaced fracture or dislocation identified. JOINTS: Right Foot: Hallux valgus deformity. Degenerative changes. Left Foot: Hallux valgus deformity. Degenerative changes. SOFT TISSUES: Right Foot: Soft tissue swelling. Vascular calcifications. Left Foot: Soft tissue swelling. Vascular calcifications. OTHER FINDINGS: None. IMPRESSION: Bilateral hallux valgus deformity. Soft tissue swelling. Distal 2nd digit transmetatarsal amputation. Additional findings as above.
== END 2018-04-26 11:09 | disposition home or self-care (01) ==
LOC: C.ER 07:40
DX: E11.621 Type 2 diabetes mellitus with foot ulcer (principal); L97.529 Non-pressure chronic ulcer of other part of left foot with unspecified severity; L97.519 Non-pressure chronic ulcer of other part of right foot with unspecified severity; M79.672 Pain in left foot; M79.671 Pain in right foot
CPT/HCPCS: 73630; 80053; 81001; 85025; 96365; 99284; J0690